=== PATIENT | female | born 1990 | race Caucasian/White ===

== ENCOUNTER 2018-01-29 09:44 | Emergency (ER) | payer MEDICAID ==
[~2018-01-29] VITALS: Ht 160 cm; Wt 90.0 kg
[2018-01-29 10:40] LABS: BASOPHILS % (AUTO) 0.4 % (0-1); EOSINOPHILS # (AUTO) 0.2 X10'3 (0-0.9); EOSINOPHILS % (AUTO) 1.6 % (0-6); HEMATOCRIT 44.6 % (35.0-45.0); LYMPHOCYTES # (AUTO) 1.5 X10'3 (1.1-4.8); LYMPHOCYTES % (AUTO) 14.4 % (21-51); MEAN CORPUSCULAR HEMOGLOBIN 28.3 PG (27.0-31.0); MEAN CORPUSCULAR HGB CONC 33.6 % (33.0-36.5); MEAN CORPUSCULAR VOLUME 84.2 FL (78-98); MEAN PLATELET VOLUME 7.8 FL (7.4-10.4); MONOCYTES # (AUTO) 0.4 X10'3 (0-0.9); MONOCYTES % (AUTO) 4.3 % (2-12); NEUTROPHILS # (AUTO) 8.2 X10'3 (1.8-7.7); NEUTROPHILS % (AUTO) 79.3 % (42-75); PLATELET COUNT 378 X10'3 (140-440); RED BLOOD COUNT 5.29 X10'6 (4.20-5.60); RED CELL DISTRIBUTION WIDTH 13.2 % (11.5-14.5); WHITE BLOOD COUNT 10.3 X10'3 (4.5-11.0)
[2018-01-29 11:02] LABS: PROTHROMBIN TIME 10.7 SECONDS (9.0-12.0)
[2018-01-29 11:07] LABS: ALANINE AMINOTRANSFERASE 25 U/L (12-78); ALBUMIN 4.1 G/DL (3.4-5.0); ALKALINE PHOSPHATASE 127 IU/L (46-116); ANION GAP 13 (8-16); ASPARTATE AMINO TRANSFERASE 15 U/L (10-37); BILIRUBIN,TOTAL 0.2 MG/DL (0.1-1.0); BLOOD UREA NITROGEN 13 MG/DL (7-18); BUN/CREATININE RATIO 16.7 (6.6-38.0); CALCIUM 9.2 MG/DL (8.5-10.1); CHLORIDE 102 MMOL/L (99-107); CREATININE 0.78 MG/DL (0.40-0.90); GLUCOSE 212 MG/DL (70-104); LIPASE 88 U/L (73-393); POTASSIUM 3.8 MMOL/L (3.5-5.1); SODIUM 140 MMOL/L (135-145); TOTAL CARBON DIOXIDE 24.7 MMOL/L (24-32); TOTAL PROTEIN 8.1 G/DL (6.4-8.2); eGFR 89 ML/MIN
[2018-01-29] MEDS ORDERED: ondansetron 4mg rapidly disintigrating tab PO ONE (12:05)
[2018-01-29 12:36] LABS: URINE HCG NEGATIVE (NEG)
[2018-01-29 12:39] LABS: CLARITY,URINE CLOUDY (Clear); COLOR,URINE YELLOW (Yellow); GLUCOSE, URINE 250 mg/dl (Neg); KETONES,URINE NEGATIVE (Neg); LEUKOCYTE ESTERASE ,URINE NEGATIVE (Neg); NITRITES, URINE NEGATIVE (Neg); OCCULT BLOOD,URINE TRACE-INTACT (Neg); PH,URINE 5.5 (4.8-8.0); PROTEIN,URINE NEGATIVE (Neg); UROBILINOGEN,URINE 0.2 E.U/dL (0.2-1.0)
[2018-01-29 12:42] LABS: UA COLLECTION TYPE CLN CATCH MIDSTREAM
[2018-01-29 12:50] LABS: BACTERIA,URINE 2+ /HPF (Neg); MUCUS STRANDS MANY /LPF (Neg); RBC,URINE 0-2 /HPF (0-2); SQUAMOUS EPITHELIAL CELL,UR MANY /LPF (FEW); WBC,URINE 0-4 /HPF (0-4)
[2018-01-29] MEDS ORDERED: ONDA8TAB13 PO (13:33)
[2018-01-29] MEDS ORDERED: ACET-3067 PO (13:33)
[2018-01-29] MEDS ORDERED: acetaminophen w/codeine (30MG) #3 tablet PO ONE (13:35)
[2018-01-29 13:49] VITALS: BP 124/71
== END 2018-01-29 13:57 | disposition home or self-care (01) ==
LOC: ER 09:45
DX: R11.2 Nausea with vomiting, unspecified (principal); R19.7 Diarrhea, unspecified; R73.9 Hyperglycemia, unspecified; Z79.899 Other long term (current) drug therapy
CPT/HCPCS: 36415; 74018; 80053; 81001; 81025; 83690; 85025; 85610; 99284

== ENCOUNTER 2018-02-10 07:31 | Emergency (ER) | payer MEDICAID ==
[~2018-02-10] VITALS: Ht 160 cm; Wt 90.9 kg
[~2018-02-10 07:31] MED LIST: ONDA8TAB13 PO
[2018-02-10 07:36] VITALS: BP 138/88
[2018-02-10] MEDS ORDERED: CITA-278 PO (07:57)
[2018-02-10] MEDS ORDERED: LORA1TAB PO (07:57)
[2018-02-10] MEDS ORDERED: TRAZ-218 PO (07:57)
== END 2018-02-10 08:20 | disposition home or self-care (01) ==
LOC: ER 07:32
DX: F41.0 Panic disorder [episodic paroxysmal anxiety] (principal)
CPT/HCPCS: 99284

== ENCOUNTER 2018-04-21 17:10 | Emergency (ER) | payer MEDICAID, OTHER ==
[~2018-04-21] VITALS: Ht 160 cm; Wt 96.0 kg
[~2018-04-21 17:10] MED LIST changes: +CITA20TA28 PO; +TRAZ-218 PO
[2018-04-21 17:40] VITALS: BP 135/68
== END 2018-04-21 18:51 | disposition home or self-care (01) ==
LOC: ER 17:10
DX: M79.672 Pain in left foot (principal); Z79.899 Other long term (current) drug therapy
CPT/HCPCS: 73630; 99283

== ENCOUNTER 2019-11-13 16:55 | Emergency (ER) | payer BC, MEDICAID ==
[~2019-11-13] VITALS: Ht 160 cm; Wt 110.7 kg
[~2019-11-13 16:55] MED LIST changes: -TRAZ-218 PO; +TRAZ-251 PO
[2019-11-13 17:46] LABS: BASOPHILS # (AUTO) 0.1 X10'3 (0-0.2); BASOPHILS % (AUTO) 1.2 % (0-1); EOSINOPHILS # (AUTO) 0.3 X10'3 (0-0.9); EOSINOPHILS % (AUTO) 2.6 % (0-6); HEMATOCRIT 39.7 % (35.0-45.0); HEMOGLOBIN 12.9 g/dl (12.0-16.0); LYMPHOCYTES # (AUTO) 3.6 X10'3 (1.1-4.8); LYMPHOCYTES % (AUTO) 30.3 % (21-51); MEAN CORPUSCULAR HEMOGLOBIN 26.8 PG (27.0-31.0); MEAN CORPUSCULAR HGB CONC 32.3 g/dL (33.0-36.5); MEAN CORPUSCULAR VOLUME 82.8 FL (78-98); MEAN PLATELET VOLUME 7.4 FL (7.4-10.4); MONOCYTES # (AUTO) 0.7 X10'3 (0-0.9); MONOCYTES % (AUTO) 6.1 % (2-12); NEUTROPHILS % (AUTO) 59.8 % (42-75); PLATELET COUNT 422 X10'3 (140-440); RED CELL DISTRIBUTION WIDTH 13.8 % (11.5-14.5); WHITE BLOOD COUNT 11.8 X10'3 (4.5-11.0)
[2019-11-13 18:02] LABS: ALANINE AMINOTRANSFERASE 33 U/L (12-78); ALBUMIN 3.6 G/DL (3.4-5.0); ALKALINE PHOSPHATASE 144 IU/L (46-116); ANION GAP 7 (8-16); ASPARTATE AMINO TRANSFERASE 21 U/L (10-37); BILIRUBIN,TOTAL 0.1 MG/DL (0.1-1.0); BLOOD UREA NITROGEN 10 MG/DL (7-18); BUN/CREATININE RATIO 12.7 (6.6-38.0); CALCIUM 8.8 MG/DL (8.5-10.1); CHLORIDE 101 MMOL/L (99-107); CREATININE 0.79 MG/DL (0.40-0.90); GLUCOSE 250 MG/DL (70-104); POTASSIUM 3.8 MMOL/L (3.5-5.1); SODIUM 138 MMOL/L (135-145); TOTAL PROTEIN 7.3 G/DL (6.4-8.2); eGFR 86 ML/MIN
[2019-11-13 18:44] VITALS: BP 124/86
[2019-11-13 18:57] LABS: URINE HCG NEGATIVE (NEG)
== END 2019-11-13 19:08 | disposition home or self-care (01) ==
LOC: ER 16:56
DX: R60.9 Edema, unspecified (principal); R74.8 Abnormal levels of other serum enzymes; R73.9 Hyperglycemia, unspecified; F41.9 Anxiety disorder, unspecified; Z79.899 Other long term (current) drug therapy
CPT/HCPCS: 36415; 80053; 81025; 85025; 99283

== ENCOUNTER → 2019-12-22 | Emergency (ER) | payer MEDICAID ==
[~2019-12-22] VITALS: Ht 160 cm; Wt 109.1 kg
[~2019-12-22] MED LIST changes: +ketorolac trometh. 30mg/ml inj. IV ONE; +normal saline 1000ML IV soln IVB ONE
[2019-12-22 20:20] LABS: BASOPHILS # (AUTO) 0.1 X10'3 (0-0.2); BASOPHILS % (AUTO) 0.9 % (0-1); EOSINOPHILS # (AUTO) 0.3 X10'3 (0-0.9); EOSINOPHILS % (AUTO) 2.6 % (0-6); HEMATOCRIT 41.3 % (35.0-45.0); HEMOGLOBIN 13.4 g/dl (12.0-16.0); LYMPHOCYTES # (AUTO) 3.7 X10'3 (1.1-4.8); LYMPHOCYTES % (AUTO) 30.3 % (21-51); MEAN CORPUSCULAR HEMOGLOBIN 27.1 PG (27.0-31.0); MEAN CORPUSCULAR HGB CONC 32.5 g/dL (33.0-36.5); MEAN CORPUSCULAR VOLUME 83.2 FL (78-98); MEAN PLATELET VOLUME 7.7 FL (7.4-10.4); MONOCYTES # (AUTO) 0.8 X10'3 (0-0.9); MONOCYTES % (AUTO) 6.7 % (2-12); NEUTROPHILS # (AUTO) 7.3 X10'3 (1.8-7.7); NEUTROPHILS % (AUTO) 59.5 % (42-75); PLATELET COUNT 399 X10'3 (140-440); RED BLOOD COUNT 4.96 X10'6 (4.20-5.60); RED CELL DISTRIBUTION WIDTH 13.8 % (11.5-14.5); WHITE BLOOD COUNT 12.3 X10'3 (4.5-11.0)
[2019-12-22 20:22] LABS: ALANINE AMINOTRANSFERASE 29 U/L (12-78); ALBUMIN 3.7 G/DL (3.4-5.0); ALKALINE PHOSPHATASE 159 IU/L (46-116); ANION GAP 8 (8-16); ASPARTATE AMINO TRANSFERASE 18 U/L (10-37); BILIRUBIN,TOTAL 0.1 MG/DL (0.1-1.0); BLOOD UREA NITROGEN 13 MG/DL (7-18); BUN/CREATININE RATIO 17.8 (6.6-38.0); CHLORIDE 104 MMOL/L (99-107); CREATININE 0.73 MG/DL (0.40-0.90); GLUCOSE 258 MG/DL (70-104); LIPASE 60 U/L (73-393); POTASSIUM 3.8 MMOL/L (3.5-5.1); SODIUM 140 MMOL/L (135-145); TOTAL CARBON DIOXIDE 28.3 MMOL/L (24-32); TOTAL PROTEIN 7.5 G/DL (6.4-8.2); eGFR > 90 ML/MIN
[2019-12-22 20:31] LABS: CALCIUM 9.4 MG/DL (8.5-10.1)
--- NOTE | 2019-12-22 20:34 | NUR ---
U/S CALLED BACK AT 20:[address]
[2019-12-22 22:02] LABS: URINE HCG NEGATIVE (NEG)
[2019-12-22 22:17] LABS: CLARITY,URINE SLIGHTLY CLOUDY (Clear); COLOR,URINE YELLOW (Yellow); GLUCOSE, URINE >=1000 mg/dl (Neg); KETONES,URINE NEGATIVE (Neg); LEUKOCYTE ESTERASE ,URINE NEGATIVE (Neg); NITRITES, URINE NEGATIVE (Neg); OCCULT BLOOD,URINE NEGATIVE (Neg); PH,URINE 5.5 (4.8-8.0); PROTEIN,URINE NEGATIVE (Neg); UROBILINOGEN,URINE 0.2 E.U/dL (0.2-1.0)
[2019-12-22 22:19] LABS: UA COLLECTION TYPE CLN CATCH MIDSTREAM
[2019-12-22 22:31] VITALS: BP 96/56
[2019-12-22 22:41] LABS: BACTERIA,URINE 1+ /HPF (Neg); RBC,URINE NONE SEEN /HPF (0-2); SQUAMOUS EPITHELIAL CELL,UR MANY /LPF (FEW); WBC,URINE 0-4 /HPF (0-4)
[2019-12-22 22:42] LABS: MUCUS STRANDS MODERATE /LPF (Neg)
== END | disposition home or self-care (01) ==
LOC: ER 18:19
DX: R10.11 Right upper quadrant pain (principal); R51.9 Headache, unspecified; M54.5 Low back pain; R11.0 Nausea; R19.7 Diarrhea, unspecified; F41.9 Anxiety disorder, unspecified; Z79.899 Other long term (current) drug therapy
CPT/HCPCS: 36415; 76700; 80053; 81001; 81025; 83690; 85025; 96361; 96374; 99284; J1885; J7030

== ENCOUNTER 2022-09-21 20:28 | Emergency (ER) | payer MEDICAID ==
[~2022-09-21] VITALS: Ht 160 cm; Wt 92.4 kg
[~2022-09-21 20:28] MED LIST changes: -ketorolac trometh. 30mg/ml inj. IV ONE; -normal saline 1000ML IV soln IVB ONE
[2022-09-21 20:40] VITALS: BP 134/91; PULSE 81; RESP 16; TEMP 98.7; O2SAT 98
[2022-09-21] MEDS ORDERED: fluconazole 150mg tablet PO ONE (21:55)
[2022-09-21] MEDS ORDERED: DIF150T PO (22:05)
== END 2022-09-21 22:11 | disposition home or self-care (01) ==
LOC: ER 20:28
DX: B37.31 Acute candidiasis of vulva and vagina (principal); F41.9 Anxiety disorder, unspecified; Z79.899 Other long term (current) drug therapy
CPT/HCPCS: 99283

== ENCOUNTER 2023-01-01 10:29 | Emergency (ER) | payer MEDICAID ==
[~2023-01-01] VITALS: Ht 160 cm; Wt 88.7 kg
[2023-01-01 10:37] VITALS: BP 133/78; PULSE 93; TEMP 98.6; O2SAT 97
[2023-01-01 11:00] LABS: URINE HCG NEGATIVE (NEG)
[2023-01-01 11:04] LABS: BASOPHILS # (AUTO) 0.1 X10'3 (0-0.2); BASOPHILS % (AUTO) 0.9 % (0-1); EOSINOPHILS # (AUTO) 0.2 X10'3 (0-0.9); EOSINOPHILS % (AUTO) 1.4 % (0-6); HEMATOCRIT 43.2 % (35.0-45.0); HEMOGLOBIN 14.3 g/dl (12.0-16.0); LYMPHOCYTES # (AUTO) 2.6 X10'3 (1.1-4.8); LYMPHOCYTES % (AUTO) 18.1 % (21-51); MEAN CORPUSCULAR HEMOGLOBIN 27.8 PG (27.0-31.0); MEAN CORPUSCULAR HGB CONC 33.2 g/dL (33.0-36.5); MEAN CORPUSCULAR VOLUME 83.6 FL (78-98); MEAN PLATELET VOLUME 7.4 FL (7.4-10.4); MONOCYTES % (AUTO) 6.8 % (2-12); NEUTROPHILS # (AUTO) 10.2 X10'3 (1.8-7.7); NEUTROPHILS % (AUTO) 72.8 % (42-75); PLATELET COUNT 428 X10'3 (140-440); RED BLOOD COUNT 5.16 X10'6 (4.20-5.60); RED CELL DISTRIBUTION WIDTH 12.7 % (11.5-14.5); WHITE BLOOD COUNT 14.1 X10'3 (4.5-11.0)
[2023-01-01 11:09] LABS: BILIRUBIN,URINE NEGATIVE (Neg); CLARITY,URINE CLOUDY (Clear); COLOR,URINE YELLOW (Yellow); GLUCOSE, URINE 500 mg/dl (Neg); KETONES,URINE NEGATIVE (Neg); LEUKOCYTE ESTERASE ,URINE MODERATE (Neg); NITRITES, URINE NEGATIVE (Neg); OCCULT BLOOD,URINE MODERATE (Neg); PH,URINE 5.5 (4.8-8.0); PROTEIN,URINE 30 mg/dl (Neg); UROBILINOGEN,URINE 0.2 E.U/dL (0.2-1.0)
[2023-01-01 11:14] LABS: UA COLLECTION TYPE CLN CATCH MIDSTREAM
[2023-01-01 11:15] LABS: BACTERIA,URINE 3+ /HPF (Neg); MUCUS STRANDS FEW /LPF (Neg); SQUAMOUS EPITHELIAL CELL,UR MODERATE /LPF (FEW); WBC,URINE TNTC /HPF (0-4)
[2023-01-01 11:23] LABS: ALANINE AMINOTRANSFERASE 19 U/L (12-78); ALBUMIN 3.7 G/DL (3.4-5.0); ALBUMIN/GLOBULIN RATIO 1.1 (1.1-1.5); ALKALINE PHOSPHATASE 128 IU/L (46-116); ANION GAP 6 (8-16); ASPARTATE AMINO TRANSFERASE 16 U/L (10-37); BILIRUBIN,TOTAL 0.3 MG/DL (0.1-1.0); BLOOD UREA NITROGEN 14 MG/DL (7-18); BUN/CREATININE RATIO 18.7 (10.0-20.0); CALCIUM 8.8 MG/DL (8.5-10.1); CHLORIDE 101 MMOL/L (99-107); CREATININE 0.75 MG/DL (0.40-0.90); GLUCOSE 228 MG/DL (70-104); LIPASE 14 U/L (16-77); POTASSIUM 3.7 MMOL/L (3.5-5.1); SODIUM 136 MMOL/L (135-145); TOTAL CARBON DIOXIDE 28.9 MMOL/L (24-32); eCRCL 89 ML/MIN; eGFR 90 ML/MIN
[2023-01-01] MEDS ORDERED: ondansetron/PF 4mg/2ml inj IV ONE (12:25)
[2023-01-01] MEDS ORDERED: CefTRIAXone 2gm/D5W 50ml BAG 50 ML IV ONE (12:25)
[2023-01-01] MEDS ORDERED: normal saline 1000ML IV soln IVB ONE (12:25)
[2023-01-01 13:26] VITALS: RESP 18
[2023-01-01] MEDS: morphine 4 MG/ML inj SYRINge IV PRN ×2 (13:26→14:05)
[2023-01-01] MEDS ORDERED: CEPH-585 PO (13:37)
== END 2023-01-01 14:16 | disposition home or self-care (01) ==
LOC: ER 10:29
DX: N10 Acute pyelonephritis (principal); E86.0 Dehydration; R31.9 Hematuria, unspecified; F41.9 Anxiety disorder, unspecified; R73.9 Hyperglycemia, unspecified; Z79.899 Other long term (current) drug therapy
CPT/HCPCS: 36415; 80053; 81001; 81025; 83690; 85025; 87077; 87088; 87186; 96365; 96375; 96376; 99284; J0696; J2270; J2405; J7030

== ENCOUNTER 2024-01-28 02:10 | Emergency (ER) | payer MEDICAID ==
[~2024-01-28] VITALS: Ht 160 cm; Wt 81.2 kg
[~2024-01-28 02:10] MED LIST changes: +ONDA-245 PO; -ONDA8TAB13 PO
[2024-01-28] MEDS: ondansetron/PF 4mg/2ml inj IV ONE (02:37)
[2024-01-28] MEDS: ketorolac trometh 15mg/ml vial 15 MG/ML ML IV ONE (02:37)
[2024-01-28] MEDS: proCHLORperazine 10 MG/2 ml inj IV ONE (02:37)
[2024-01-28] MEDS: normal saline 1000ml 1,000 ML IV ONE (02:38)
[2024-01-28] MEDS ORDERED: ONDA-245 PO (03:28)
[2024-01-28] MEDS ORDERED: LOPE2CAP PO (03:28)
[2024-01-28 03:47] VITALS: BP 111/69; PULSE 105; RESP 14; TEMP 98.5; O2SAT 96
== END 2024-01-28 03:49 | disposition home or self-care (01) ==
LOC: ER 02:10
DX: A08.4 Viral intestinal infection, unspecified (principal); Z79.899 Other long term (current) drug therapy; Z87.440 Personal history of urinary (tract) infections
CPT/HCPCS: 96361; 96374; 96375; 99284; J0780; J1885; J2405; J7030

== ENCOUNTER 2024-03-12 12:58 | Emergency (ER) | payer MEDICAID ==
[~2024-03-12] VITALS: Ht 160 cm; Wt 90.9 kg
[~2024-03-12 12:58] MED LIST changes: +LOPE2CAP PO
[2024-03-12 13:03] VITALS: BP 139/88; PULSE 100; RESP 18; O2SAT 96
[2024-03-12 14:40] VITALS: TEMP 100.1
[2024-03-12] MEDS: ibuprofen tablet 400 MG TABLET PO ONE (14:40)
== END 2024-03-12 14:42 | disposition home or self-care (01) ==
LOC: ER 12:58
DX: J22 Unspecified acute lower respiratory infection (principal); F11.20 Opioid dependence, uncomplicated; F41.9 Anxiety disorder, unspecified; Z79.899 Other long term (current) drug therapy
CPT/HCPCS: 99282

== ENCOUNTER 2024-03-12 18:17 | Emergency (ER) | payer MEDICAID ==
[~2024-03-12] VITALS: Ht 160 cm; Wt 90.1 kg
[2024-03-12 18:29] VITALS: BP 143/100; PULSE 74; RESP 18; TEMP 98; O2SAT 98
== END 2024-03-12 18:39 | disposition left against medical advice (07) ==
LOC: ER 18:18
DX: J00 Acute nasopharyngitis [common cold] (principal); R05.9 Cough, unspecified; R09.81 Nasal congestion; Z53.21 Procedure and treatment not carried out due to patient leaving prior to being seen by health care provider

== ENCOUNTER 2024-12-29 11:51 | Emergency (ER) | payer MEDICAID ==
[~2024-12-29] VITALS: Ht 160 cm; Wt 88.8 kg
[~2024-12-29 11:51] MED LIST changes: +CITA-178 PO; -CITA20TA28 PO
[2024-12-29 12:10] VITALS: TEMP 98.4
[2024-12-29] MEDS ORDERED: METH4TAB81 PO (14:19)
--- NOTE | 2024-12-29 14:20 | Physician Documentation ---
History of Present Illness ~ Chief Complaint: Foot pain Stated Complaint: RIGHT HEAL PAIN Time Seen by MD: 12:41 OK to notify your PCP?: Yes Primary Medical Doctor: No PMD Source: patient Mode of Arrival: POV Exam Limitations: no limitations HPI 34-year-old female who is here due to right heel pain which she states has been an ongoing issue but recently worsened after working seven days straight. Patient works as an [employer] in his on her feet a lot. States the pain is worse when she 1st stands up. Pain is localized to her heel and Achilles. No redness, swelling, calf pain. No pre arrival treatment other than Motrin and Tylenol. Tetanus witin 5 years: Yes Medication Reconciliation Allergies: Coded Allergies: No Known Allergies (Unverified , 12/29/24) Scheduled Citalopram Hydrobromide* (Celexa*), 1 TAB PO DAILY Loperamide Hcl (Loperamide), 2 CAP PO Q6H Methylprednisolone (Medrol Dosepak), 0 PO UD Ondansetron 8mg ODT (Ondansetron Odt), 1 TAB PO Q6H Trazodone HCl (Trazodone HCl), 1 TAB PO HS Scheduled PRN Ondansetron 8mg ODT (Ondansetron Odt), 1 TAB PO Q6H PRN for nausea vomiting Past Medical History Past Medical History: UTI, Anxiety Past Surgical History: noncontributory Smoking Status: Current every day smoker Alcohol Use: None Lives with: Family Lives In: Home Review of Systems All Other Systems at this time: Reviewed and Negative Physical Exam Vital Signs: Temperature: 98.4, Source: Oral, Heart Rate: 113, Respiratory Rate: 16, BP: 106/85, Pulse Oximetry: 97, Weight: 88.800 Oxygen Flow Rate: 0 Physical Exam General Appearance: Alert, WD/WN. NAD. HEENT: NCAT, PERRL, EOMI. Neck: Supple, trachea midline. Cardiovascular: RRR. No m/r/g. Lungs: CTAB. Breathing unlabored Extremities: Normal inspection. No edema. Tenderness over right plantar fascia and distal Achilles tendon. No tenderness over calf. Normal inspection. Pedal pulses 2+. Skin: Warm/dry, normal color Neurological: Alert and oriented x4, antalgic gait favoring left leg Psychiatric: Affect congruent with mood. Progress Progress Note Placed right foot in a walking boot. Results/Orders Results/Orders Orders - LUIS ZAFAR Ortho Orders (12/29/24 14:17) Vital Signs 12/29/24 12/29/24 12:10 14:36 Temp 98.4 Pulse 113 98 Resp 16 16 B/P (MAP) 106/85 110/76 Pulse Ox 97 99 O2 Flow Rate 0 Medical Decision Making Additional information obtaine: N/A Findings n/a General Diff Dx:Considerations: Unlikely: Other Knee Diff Dx:Considerations: Unlikely: Other Ankle Diff Dx:Considerations: Unlikely: Other Foot Diff Dx:Considerations: Include: Abrasion, Arthritis, Cellulitis, Contusion, Dislocation, DJD, Fracture-metatarsal, Fracture-phalynx, Fracture- tarsal, Gout, Hematoma, Ingrown toenail, Laceration, Malunion, Neurovascular injury, Open fracture, Paronychia, Puncture, Rheumatoid, Sprain, Septic, Subungual hematoma, Ulcer, Other Toe Diff Dx:Considerations: Unlikely: Other Additional Comment Patient has no tenderness over her calf or complaints of calf pain, pulses are normal. There was blue is no precipitating injury. Imaging was not deemed necessary. Her symptoms are fairly classic for Achilles tendinitis with plantar fasciitis. Departure Time of Disposition: 14:20 Disposition: 01 HOME / SELF CARE / HOMELESS Impression: Primary Impression: Plantar fasciitis of right foot Additional Impression: Achilles tendinitis of right lower extremity Condition: Stable Discharge Instructions: Plantar Fasciitis Additional Instructions: wear boot as recommended and gradually advance activity as tolerated Referrals: NO PRIMARY CARE PROVIDER (PCP) Prescriptions Methylprednisolone (Medrol Dosepak) 4 Mg Tab.ds.pk 0 PO UD, #21 TAB 0 Refills take 6 Pills Day 1, 5 Pills Day 2, 4 Pills Day 3, 3 Pills Day 4, 2 Pills Day 5 and 1 pill Day 6 Prov: LUIS ZAFAR 12/29/24 Education Educated: Patient Educated regarding: diagnosis, treatment, need for follow up Signature Scribe Signature: x Attestation: LUIS Sexton Dec 29, 2024 14:20
[2024-12-29 14:36] VITALS: BP 110/76; PULSE 98; RESP 16; O2SAT 99
== END 2024-12-29 14:38 | disposition home or self-care (01) ==
LOC: ER 11:52
DX: M72.2 Plantar fascial fibromatosis (principal); M76.61 Achilles tendinitis, right leg; F41.9 Anxiety disorder, unspecified; F17.200 Nicotine dependence, unspecified, uncomplicated
CPT/HCPCS: 99283; L4360